=== PATIENT | male | born 1970 | race Caucasian/White ===

== ENCOUNTER 2018-01-28 21:43 | Emergency (ER) | payer SELFPAY ==
[2018-01-29] MEDS: HYDROCODONE/APAP (10/325) TAB PO (02:34)
== END 2018-01-29 04:58 | disposition home or self-care (01) ==
LOC: FTE 21:43
DX: S99.911A Unspecified injury of right ankle, initial encounter (principal); F17.210 Nicotine dependence, cigarettes, uncomplicated; W10.8XXA Fall (on) (from) other stairs and steps, initial encounter; Y92.9 Unspecified place or not applicable
CPT/HCPCS: 73590; 73610-RT; 73630; 99283